=== PATIENT | female | born 1970 | race Caucasian/White ===

== ENCOUNTER → 2022-04-18 | Outpatient (CLI) | payer OTHER ==
--- NOTE | 2022-04-19 04:32 | MR ---
EXAMINATION TYPE: MR lumbar spine wo con DATE OF EXAM: 04/18/2022 COMPARISON: None HISTORY: Low back pain that radiates down both legs Multiplanar multi echo imaging of the lumbar spine with no contrast. The lumbar vertebra have fairly normal alignment. There is mild narrowing of the disc spaces. Disc sp sumanth narrowing more noticeable at L1-2. There is posterior mild disc herniation at L1-2 and L3-4. Ther e is a minimal L5-S1 subluxation. No definite spondylolysis. No evidence of focal bone destruction. T here is no lumbar paraspinal mass. No evidence of any significant lumbar spinal stenosis. The lumbar neural foramina appear fairly well maintained. IMPRESSION: Spondylotic changes. Mild posterior disc herniation at L1-2 and L3-4 without spinal stenosis. No frac ture.
== END | disposition home or self-care (01) ==
LOC: RADMRIMAIN 14:21
PROVIDERS: ATTEND Family Medicine
DX: M47.816 Spondylosis without myelopathy or radiculopathy, lumbar region (principal); M51.26 Other intervertebral disc displacement, lumbar region
CPT/HCPCS: 72148

== ENCOUNTER → 2022-07-24 | Outpatient (CLI) | payer OTHER ==
[2022-07-24 14:19] LABS: INR 1.1 (<1.2); Prothrombin Time 11.4 sec (9.0-12.0)
[2022-07-24 14:22] LABS: Appearance,Urine Cloudy (Clear); Bacteria,Urine Rare /hpf; Bilirubin,Urine Negative (Negative); Blood,Urine Moderate (Negative); Color,Urine Light Yellow; Glucose,Urine (UA) Negative (Negative); Ketones,Urine Negative (Negative); Leukocyte Esterase,Urine Moderate (Negative); Mucus,Urine Rare /hpf; Nitrite,Urine Negative (Negative); Protein,Urine Negative (Negative); RBC,Urine 1 /hpf (0-5); Specific Gravity,Urine 1.016 (1.001-1.035); Squamous Epithelial Cell,Urine 4 /hpf (0-4); Urobilinogen,Urine <2.0 mg/dL (<2.0); WBC,Urine 23 /hpf (0-5)
[2022-07-24 18:55] LABS: Basophils # (A) 0.08 X 10*3/uL (0.00-0.10); Basophils % (A) 0.8 %; Eosinophils # (A) 0.23 X 10*3/uL (0.04-0.35); Eosinophils % (A) 2.4 %; HCT 45.9 % (37.2-46.3); HGB 13.6 g/dL (12.0-15.0); Immature Grans, Automated 0.3 %; Lymphocytes # (A) 2.55 X 10*3/uL (0.90-5.00); MCH 23.5 pg (27.0-32.0); MCHC 29.6 g/dL (32.0-37.0); MCV 79.3 fL (80.0-97.0); Mean Platelet Volume 10.3 fL (9.5-12.2); Monocytes # (A) 0.57 X 10*3/uL (0.20-1.00); NRBC Per 100 WBC 0 /100 WBCS (0.0-0.0); Neutrophils # (A) 5.97 X 10*3/uL (1.80-7.70); Neutrophils % (A) 63.5 %; Platelet Count 332 X 10*3/uL (140-440); RBC 5.79 X 10*6/uL (4.10-5.20); RDW 16.8 % (11.5-14.5); WBC 9.43 X 10*3/uL (4.50-10.00)
[2022-07-24 21:11] LABS: African American GFR (CKD) 103.7 (60.0-200.0); Albumin 4.7 g/dL (3.8-4.9); Albumin/Globulin Ratio 1.69 (1.60-3.17); Anion Gap 16.1 mmol/L (10.00-18.00); BUN/Creat Ratio 14.38 Ratio (12.00-20.00); Calcium 10.1 mg/dL (8.7-10.3); Carbon Dioxide 22.3 mmol/L (20.0-27.5); Globulin 2.8 g/dL (1.6-3.3); Non-African American GFR(CKD) 89.5 (60.0-200.0); Potassium 4.2 mmol/L (3.5-5.5); Total Bilirubin 0.2 mg/dL (0.30-1.20); Total Protein 7.5 g/dL (6.2-8.2)
== END | disposition home or self-care (01) ==
LOC: LABPAT 12:25
PROVIDERS: ATTEND Orthopaedic Surgery
DX: Z01.818 Encounter for other preprocedural examination (principal); Z01.812 Encounter for preprocedural laboratory examination; M16.12 Unilateral primary osteoarthritis, left hip
CPT/HCPCS: 80053; 81001; 85025; 85610; 85730; 87070; 93005

== ENCOUNTER 2022-07-30 05:27 | Day surgery (SDC) | payer OTHER ==
[~2022-07-30 05:27] MED LIST: ACETAMINOPHEN TAB 500 MG TAB PO PRN; GABAPENTIN 300 MG CAP PO PRN; MELOXICAM 7.5 MG TAB PO PRN; TRANEXAMIC ACID IN NACL,ISO-OS 1,000 MG in SALINE 1 100ML.BAG IVPB PRN
[2022-07-30] MEDS ORDERED: LIDOCAINE 1% (10MG/ML) FOR IV START INTRADERMA PRN (05:57)
[2022-07-30] MEDS ORDERED: HYDROmorphone 0.5 MG/0.5 ML SYRINGE IVP PRN ×3 (05:57→08:52)
[2022-07-30] MEDS ORDERED: MIDAZOLAM 2 MG/2 ML VIAL IV PRN (05:57)
[2022-07-30] MEDS ORDERED: DEXAMETHASONE SOD PHOSPHATE 4 MG/ML 1 ML VIAL IV ONE (05:57)
[2022-07-30] MEDS ORDERED: ONDANSETRON 4 MG/2 ML VIAL IVP ONE (05:57)
[2022-07-30] MEDS: LACTATED RINGERS 1,000 ML IV SCH (06:30)
[2022-07-30] MEDS ORDERED: SCOPOLAMINE 1 MG/72 HR PATCH TRANSDERM ONE (06:30)
[2022-07-30 06:36] LABS: Glucose,Whole Blood 106 mg/dL (70-110)
[2022-07-30] MEDS ORDERED: ceFAZolin 1,000 MG in SODIUM CHLORIDE 0.9% 1,000 ML IRRIGATION ONE (07:00)
[2022-07-30] MEDS ORDERED: ROPIVACAINE 5 MG/ML 30 ML VIAL MISCELLANE ONE ×2 (07:29→08:14)
[2022-07-30] MEDS ORDERED: LACTATED RINGERS 1,000 ML IV ONE (08:20)
--- NOTE | 2022-07-30 08:34 | P.OP ---
Date of Procedure: 07/30/22 Preoperative Diagnosis: severe osteoarthritis left hip Postoperative Diagnosis: 1. Severe osteoarthritis left hip 2. Obesity Procedure(s) Performed: 1. Left total hip arthroplasty with a direct anterior approach 2. Application of Prevena wound vac sysytem Implants: [employer] Polarstem standard size 3 [employer] R3, 3 hole hemispherical acetabular shell, 54 mm [employer] Reflection 6.5 mm cancellus screw, 20 mm 2 [employer] R3, XLPE 20 acetabular liner [employer] Oxinium femoral head 36 m, +4 All components were press-fit. The articulation is Oxinium on polyethylene. Anesthesia: spinal Surgeon: Darius Pierce Special Skills Officer #1: Sarah Garza Estimated Blood Loss (ml): 400 Pathology: other (femoral head) Condition: stable Disposition: PACU Indications for Procedure: After failure of conservative treatment we discussed the surgical and nonsurgical treatment options at length. Patient wishes to proceed with a total hip arthroplasty with a direct anterior approach. Complications specific to this procedure were discussed at length, including but not limited to infection, leg length discrepancy, dislocation, nerve injury, and fracture. Covid-19 was also discussed at length with the patient, and they are aware of the current policies and procedures. The patient was given the option of delaying surgery, but they elect to proceed knowing these risks. Patient is aware of all these complications and informed consent was obtained Operative Findings: the operative findings are consistent with severe osteoarthritis of the left hip Description of Procedure: Patient was seen and evaluated in the preoperative area and the consent was reviewed. The operative site was marked with a skin marker. The patient was then brought to the operating room and given preoperative antibiotics intravenously. 1 g of Tranexamic acid was also given intravenously. A spinal anesthetic was administered by the anesthesia department. The patient was then placed on the [place] table with the bony prominences well-padded. The hip area was then prepped with a ChloraPrep solution and draped in the usual sterile fashion. A universal timeout was then performed, which confirmed the patient's name, surgical site, ALLERGIES, and procedure being performed on the consent. Next the incision site was located at 1 cm distal and 2 cm lateral to the anterior superior iliac spine. The skin and subcutaneous tissues were sharply incised. Incision was carefully dissected down to the fascia overlying the tensor fascia cyntiha muscle. This fascia was then incised in line with the incision. Care was taken to stay laterally in order to avoid injuring the lateral femoral cutaneous nerve. Next, using blunt finger dissection, the tensor fascia cynthia muscle was dissected off its investing fascia. The muscle was then carefully retracted laterally with a cobra retractor over the lateral neck of the femur. Next, the circumflex vessels were identified and cauterized using the AquaMantis device. The anterior hip capsule was then exposed. The capsule was then opened and an inverted T fashion. Cobra retractors were then placed intracapsularly. The retractors were maintained intracapsular throughout the procedure. The proximal femur was then visualized. Fluoroscopic x-rays were then taken in order to evaluate the preoperative leg lengths. A small amount of traction was placed on the leg. The femoral neck was then osteotomized at the appropriate level above the lesser trochanter. A small wedge of bone was then removed from the remaining femoral head. Next, using a corkscrew the femoral head was removed from the acetabulum. On gross visual inspection, the femoral head had complete loss of articular cartilage and multiple periarticular osteophytes. The femoral head was then measured. Attention was then turned to the acetabulum. The acetabulum was exposed and any remaining labrum was excised. Sequential reaming of the acetabulum was performed using fluoroscopic guidance until there was a good bed of bleeding cancellus bone. When the appropriate size was reached, a trial was then placed. The position and fit of the trial was checked with fluoroscopy. The trial was then removed. Then, using fluoroscopic guidance, the final implant was impacted at 20 of anteversion and 40 of abduction, and fully seated in the acetabulum. 2 screws were then placed in the acetabulum. Again fluoroscopy was used to check position of the screws. Next, the liner was then impacted, with a 20 elevated liner located in the anterior superior quadrant. Component locking was confirmed. Attention was then directed to the femur. With the aid of the [place] table, the femur was externally rotated to approximately 130, extended, and adducted under the opposite leg. A side hook was then placed under the proximal femur, and the side hook elevator was used to elevate the proximal femur while releasing the capsule. Retractors were then placed. A capsular release was performed, as well as a release of the conjoined tendon, which afforded excellent visualization of the proximal femur. Next, a box osteotome was used to lateralize the proximal femur. A hand tool filer was then used to locate the femoral canal. Sequential broaching was then performed with appropriate size which afforded excellent fixation in the proximal femur. A trial was then placed with appropriate head and neck, and the hip was gently reduced with the aid of the [place] table. Fluoroscopy was then used to check position of the components, as well as to evaluate the leg lengths and offset. The leg lengths and offset were measured as closely as possible to ensure stability of the hip. The hip was then gently dislocated and the trials were then removed. Final implants were then impacted and the hip was again reduced. Final fluoroscopic x-rays confirmed that the components were in anatomic position. The leg lengths and offset were measured and were found to coincide with the trial measurements. The hip was also taken through range of motion, and found to be stable. The hip was then copiously irrigated with antibiotic solution with pulsatile lavage. The hip was then irrigated with Irrisept solution. The soft tissues were then injected with a ropivacaine solution. A second dose of 1 g of Tranexamic acid was also given intravenously. The fascia was then closed with 2-0 strata fix suture. The subcutaneous tissue was closed with 3-0 Vicryl. The subcuticular tissue was closed with 3-0 strata fix suture. A Prevena wound vac dressing was applied secondary to the patients large panus covering the incision site. The patient was then transferred to the recovery room in stable condition. The assurance assistant ANNALISA Madrigal was required due to the complexity of surgery, and the need for skilled surgical specialist for positioning, draping, exposure, retraction, and closure of the wound.
[2022-07-30] MEDS ORDERED: NALOXONE 0.4 MG/ML 1 ML VIAL IV PRN (08:52)
[2022-07-30] MEDS ORDERED: MAGNESIUM HYDROXIDE 2,400 MG/10 ML CUP PO PRN (08:52)
[2022-07-30] MEDS ORDERED: ONDANSETRON 4 MG/2 ML VIAL IVP PRN (08:52)
[2022-07-30] MEDS ORDERED: HYDROmorphone 1 MG/ML 1 ML SYRINGE IVP PRN (08:52)
[2022-07-30] MEDS ORDERED: HYDROcodone/APAP 7.5-325MG 1 EACH TAB PO PRN (08:54)
--- NOTE | 2022-07-30 08:57 | XR ---
EXAMINATION TYPE: XR Hip Limited LT DATE OF EXAM: 07/30/2022 COMPARISON: NONE HISTORY: Postop TECHNIQUE: One view submitted. FINDINGS: There is postsurgical change in near anatomic alignment. There is soft tissue edema and emphysema. IMPRESSION: 1. Postoperative change. Appears in near-anatomic alignment.
--- NOTE | 2022-07-30 09:23 | FL ---
Intraoperative/procedural fluoroscopic services were provided. Total fluoroscopy time is 43 seconds w ith a total of 3 submitted images to PACS. Please see the operative/procedural note for further detai ls.
[2022-07-30] MEDS: SODIUM CHLORIDE 0.9% 1,000 ML IV SCH (10:21)
[2022-07-30] MEDS ORDERED: ALPRAZolam 0.25 MG TAB PO PRN (11:21)
[2022-07-30] MEDS: HYDROcodone/APAP 7.5-325MG 1 EACH TAB PO PRN ×3 (11:25→23:46)
[2022-07-30] MEDS: NICOTINE 21MG/24HR PATCH TRANSDERM SCH (14:58)
[2022-07-30] MEDS: ASPIRIN 325 MG TAB PO SCH (20:27)
[2022-07-30] MEDS ORDERED: ESCITALOPRAM 10 MG TAB PO SCH (21:00)
[2022-07-30] MEDS ORDERED: SENNOSIDES-DOCUSATE SODIUM 1 EACH TAB PO SCH (21:00)
--- NOTE | 2022-07-30 21:43 | P.CONS ---
History of Present Illness - Reason for Consult Consult date: 07/30/22 Medical management Requesting physician: Darius Pierce - Chief Complaint Left hip surgery - History of Present Illness This is a pleasant 52-year-old patient who follows with Dr. Danilo Flores. Chronic stable medical conditions include GERD, anxiety, depression, nicotine dependence, osteoarthritis. Patient has undergone left total hip arthroplasty. Postprocedure pain is controlled. No nausea vomiting. Did tolerate some diet. No chest pain or shortness of breath. Review of systems: GEN.: Tired EYES: None HEENT: None NECK: None RESPIRATORY: None CARDIOVASCULAR: None GASTROINTESTINAL: None GENITOURINARY: None MUSCULOSKELETAL: Joint pains LYMPHATICS: None HEMATOLOGICAL: None PSYCHIATRY: None NEUROLOGICAL: None Past medical history to include: GERD, anxiety, depression, nicotine dependence Social history: Lives with her . Smokes about half a pack a day for last 34 years. No alcohol. Family history: Reviewed, noncontributory to presentation Physical examination: VITAL SIGNS: 97.7, 92, 17, 1 25 x 65, 97% room air GENERAL: BMI 40.8, declining bed, awake, comfortable. EYES: Pupils equal. Conjunctiva normal. HEENT: External appearance of nose and ears normal, oral cavity grossly normal. NECK: JVD not raised; masses not palpable. HEART: First and second heart sounds are normal; no edema. LUNGS: Respiratory rate normal; clear to auscultation. ABDOMEN: Soft, nontender, liver spleen not palpable, no masses palpable. PSYCH: Alert and oriented x3; mood and affect normal. MUSCULOSKELETAL:No Clubbing/cyanosis;muscles-grossly intact, evidence of OA, dressing on the left hip NEUROLOGICAL: Cranial nerves grossly intact; no facial asymmetry, power and sensation grossly intact. LYMPHATICS: No lymph nodes palpable in the axilla and neck INVESTIGATIONS, reviewed in the clinical context: Lab work from 07/24/2022 WBC 9.4 hemoglobin 13.6 platelets 332 potassium 4.2 creatinine 0.8 AST 29 ALT 12 Assessment and plan: -Left total hip arthroplasty. Pain control. Aspirin for DVT prophylaxis. Ancef for infection prophylaxis -Morbid obesity BMI 40.8 Consult dietitian for weight loss measures -Depression and anxiety Lexapro -Chronic nicotine dependence, suggested smoker Nicotine patch Care was discussed with the patient. Questions answered. Nicotine patch. Aspirin for DVT prophylaxis. Patient to follow-up with his PCP upon discharge Thank you Dr. Pierce Past Medical History Past Medical History: Osteoarthritis (OA) Additional Past Medical History / Comment(s): US on 07-23-22 @ [facility] of left leg no blood clots after having injury-no open areas,periodic steroid use-last used Jul 2022, Ant TLH 07/30/2022 History of Any Multi-Drug Resistant Organisms: None Reported Additional Past Surgical History / Comment(s): wisdom teeth Past Anesthesia/Blood Transfusion Reactions: Motion Sickness, Postoperative Nausea & Vomiting (PONV) Past Psychological History: Anxiety, Depression Smoking Status: Current every day smoker Past Alcohol Use History: None Reported Additional Past Alcohol Use History / Comment(s): started smoking at age 18,<1ppd Past Drug Use History: None Reported - Past Family History Mother Family Medical History: No Reported History Medications and Allergies Home Medications Medication Instructions Recorded Confirmed Type ALPRAZolam [Xanax] 0.25 mg PO BID PRN 07/25/22 07/25/22 History Escitalopram Oxalate [Lexapro] 10 mg PO HS 07/25/22 07/25/22 History HYDROcodone/APAP 5-325MG [[place] 1 tab PO Q6HR PRN 07/25/22 07/25/22 History 5-325] Ibuprofen [Motrin] 800 mg PO Q8H PRN 07/25/22 07/25/22 History methylPREDNISolone Dose Pack 4 mg PO DIRECTED PRN 07/25/22 07/25/22 History [Medrol Dose Pack] Aspirin 325 mg PO BID #60 tab 07/30/22 Rx HYDROcodone/APAP 7.5-325MG [[place] 1 - 2 tab PO Q6H PRN #32 tab 07/30/22 Rx 7.5-325] Sennosides [Senokot] 2 tab PO DAILY PRN #60 tablet 07/30/22 Rx Allergies Allergy/AdvReac Type Severity Reaction Status Date / Time Penicillins Allergy Rash/Hives Verified 07/25/22 15:08 Physical Exam Vitals: Vital Signs Temp Pulse Resp BP Pulse Ox 07/30/22 20:00 97.7 F 92 17 125/65 97 07/30/22 14:00 98.2 F 105 H 18 106/70 94 L 07/30/22 11:15 98.0 F 70 18 104/66 96 07/30/22 10:47 62 16 107/56 95 07/30/22 10:32 64 16 111/61 94 L 07/30/22 10:17 69 16 109/62 95 07/30/22 10:02 64 16 109/60 95 07/30/22 09:47 67 16 116/62 94 L 07/30/22 09:32 63 16 110/58 94 L 07/30/22 09:17 68 16 105/58 96 07/30/22 09:02 68 16 106/62 96 07/30/22 08:47 97.0 F L 78 12 113/63 99 07/30/22 06:46 97 F L 69 20 132/72 98 Intake and Output 07/30/22 07/30/22 07/30/22 06:59 14:59 22:59 Intake Total 100 1251 Output Total 600 Balance 100 651 Intake: IV 100 1251 Output: Urine 200 Estimated Blood Loss 400 Other: Weight 101.1 kg 101.1 kg
[2022-07-31] MEDS: SODIUM CHLORIDE 0.9% 1,000 ML IV SCH (04:26)
[2022-07-31] MEDS: LACTATED RINGERS 1,000 ML IV SCH (06:09)
[2022-07-31] MEDS: HYDROcodone/APAP 7.5-325MG 1 EACH TAB PO PRN ×2 (06:59→12:05)
[2022-07-31] MEDS: NICOTINE 21MG/24HR PATCH TRANSDERM SCH (07:35)
[2022-07-31] MEDS: ASPIRIN 325 MG TAB PO SCH (07:35)
[2022-07-31 07:40] VITALS: BP 145/75; PULSE 64; RESP 18; TEMP 97.9
--- NOTE | 2022-07-31 09:40 | P.DS ---
Providers Expected date of discharge: 07/31/22 Attending physician: Darius Pierce Consults: 07/30/22 08:52 Consult Physician Routine Consulting Provider: Vito Murray Consult Reason/Comments: medical management Do you want consulting provider notified?: Yes Primary care physician: Danilo Flores - Discharge Diagnosis(es) (1) Osteoarthritis of left hip Current Visit: Yes Status: Acute (2) S/P total left hip arthroplasty Current Visit: Yes Status: Acute Hospital Course: This is a 52-year-old female with known history of degenerative arthritis of the left hip. The patient presented for evaluation as an outpatient. After discussion and consideration patient elects to proceed with total hip arthroplasty. The patient is seen preoperatively by Dr. Pierce and medically cleared for surgery by their primary care physician. Patient is admitted to [facility] on 07/30/2022 for total hip arthroplasty. The procedure is performed without complication or sequelae. The patient is doing well postoperatively. Labs and vital signs are stable on day of discharge. On day of discharge patient's hip incision is healing well. There is minimal erythema. There is no drainage noted at this time. There is minimal soft tissue swelling to the hip and thigh. Patient has full foot and ankle motion without difficulty or pain. Calf is soft and nontender to palpation. Neurovascular status to the left lower extremity is intact. Patient is discharged home in good condition. Please see [facility] rec for accurate list of home medications. Plan - Discharge Summary Discharge Rx Participant: No New Discharge Prescriptions: New Aspirin 325 mg PO BID #60 tab Sennosides [Senokot] 2 tab PO DAILY PRN #60 tablet PRN Reason: Constipation HYDROcodone/APAP 7.5-325MG [[place] 7.5-325] 1 - 2 tab PO Q6H PRN #32 tab PRN Reason: Pain No Action Ibuprofen [Motrin] 800 mg PO Q8H PRN PRN Reason: Pain methylPREDNISolone Dose Pack [Medrol Dose Pack] 4 mg PO DIRECTED PRN PRN Reason: only takes when works HYDROcodone/APAP 5-325MG [[place] 5-325] 1 tab PO Q6HR PRN PRN Reason: Pain Escitalopram Oxalate [Lexapro] 10 mg PO HS ALPRAZolam [Xanax] 0.25 mg PO BID PRN PRN Reason: Anxiety Discharge Medication List ALPRAZolam [Xanax] 0.25 mg PO BID PRN 07/25/22 [History] Escitalopram Oxalate [Lexapro] 10 mg PO HS 07/25/22 [History] HYDROcodone/APAP 5-325MG [[place] 5-325] 1 tab PO Q6HR PRN 07/25/22 [History] Ibuprofen [Motrin] 800 mg PO Q8H PRN 07/25/22 [History] methylPREDNISolone Dose Pack [Medrol Dose Pack] 4 mg PO DIRECTED PRN 07/25/22 [History] Aspirin 325 mg PO BID #60 tab 07/30/22 [Rx] HYDROcodone/APAP 7.5-325MG [[place] 7.5-325] 1 - 2 tab PO Q6H PRN #32 tab 07/30/22 [Rx] Sennosides [Senokot] 2 tab PO DAILY PRN #60 tablet 07/30/22 [Rx] Follow up Appointment(s)/Referral(s): Danilo Flores MD [Primary Care Provider] - 1 Week Darius Pierce DO [Doctor of Osteopathic Medicine] - 08/13/22 2:00 pm Patient Instructions/Handouts: *Surgery [facility] - Scopalamine Patch Instructions Activity/Diet/Wound Care/Special Instructions: Weightbearing as tolerated with walker. Leave wound vac intact until follow up in the office at one week. Please take aspirin 325mg twice daily for 30 days to prevent blood clots. Recommend use of compression stockings daily until follow up to help prevent swelling and blood clots. May remove at night before sleeping. Please follow-up with [facility] in 1 week for wound vac removal, and call with any questions or concerns, . Discharge Disposition: HOME WITH HOME HEALTH SERVICES
[2022-07-31 09:42] LABS: Basophils # (A) 0.04 X 10*3/uL (0.00-0.10); Basophils % (A) 0.4 %; Eosinophils # (A) 0.09 X 10*3/uL (0.04-0.35); Eosinophils % (A) 0.8 %; HCT 30.7 % (37.2-46.3); Immature Grans, Automated 0.4 %; Lymphocytes # (A) 1.86 X 10*3/uL (0.90-5.00); Lymphocytes % (A) 17.5 %; MCH 23.1 pg (27.0-32.0); MCHC 29.3 g/dL (32.0-37.0); MCV 78.7 fL (80.0-97.0); Mean Platelet Volume 10.2 fL (9.5-12.2); Monocytes # (A) 1.05 X 10*3/uL (0.20-1.00); Monocytes % (A) 9.9 %; NRBC Per 100 WBC 0 /100 WBCS (0.0-0.0); Neutrophils # (A) 7.55 X 10*3/uL (1.80-7.70); Platelet Count 228 X 10*3/uL (140-440); RDW 17.1 % (11.5-14.5); WBC 10.63 X 10*3/uL (4.50-10.00)
[2022-07-31 13:24] VITALS: BMI 40.7
--- NOTE | 2022-07-31 16:47 | P.PN ---
Progress Note - Text Progress Note Date: 07/31/22 - Chief Complaint Left hip surgery Hospital course This is a pleasant 52-year-old patient who follows with Dr. Danilo Flores. Chronic stable medical conditions include GERD, anxiety, depression, nicotine dependence, osteoarthritis. Patient has undergone left total hip arthroplasty. Postprocedure pain is controlled. No nausea vomiting. Did tolerate some diet. No chest pain or shortness of breath. 07/31/2022: Pain control. Oral intake fair. Up in a chair. Did ambulate. Questions answered. Current medications reviewed Past medical history to include: GERD, anxiety, depression, nicotine dependence Social history: Lives with her . Smokes about half a pack a day for last 34 years. No alcohol. Family history: Reviewed, noncontributory to presentation Physical examination: VITAL SIGNS: 97.9, 64, 18, 145% he 5, 99% room air GENERAL: Up in a chair, comfortable EYES: Pupils equal. Conjunctiva normal. HEENT: External appearance of nose and ears normal, oral cavity grossly normal. NECK: JVD not raised; masses not palpable. HEART: First and second heart sounds are normal; no edema. LUNGS: Respiratory rate normal; clear to auscultation. ABDOMEN: Soft, nontender, liver spleen not palpable, no masses palpable. PSYCH: Alert and oriented x3; mood and affect normal. MUSCULOSKELETAL:No Clubbing/cyanosis;muscles-grossly intact, evidence of OA, dressing on the left hip INVESTIGATIONS, reviewed in the clinical context: 07/31/2022: White count 10.6 hemoglobin 9 platelets 228 Lab work from 07/24/2022 WBC 9.4 hemoglobin 13.6 platelets 332 potassium 4.2 creatinine 0.8 AST 29 ALT 12 Assessment and plan: -Left total hip arthroplasty. Pain control. Aspirin for DVT prophylaxis. Ancef for infection prophylaxis -Acute postprocedure blood loss anemia expected from surgery Add ferrous sulfate -Morbid obesity BMI 40.8 Consult dietitian for weight loss measures -Depression and anxiety Lexapro -Chronic nicotine dependence, suggested smoker Nicotine patch Ferrous sulfate added. Patient to follow-up with PCP upon discharge. Discussed. Thank you Dr. Pierce
== END 2022-07-31 13:00 | disposition home health service (06) ==
LOC: OR 05:27 → 4SSUR 10:33 → OR 07-31 13:00
PROVIDERS: ATTEND Orthopaedic Surgery
DX: M16.12 Unilateral primary osteoarthritis, left hip (principal); E66.9 Obesity, unspecified; F41.8 Other specified anxiety disorders; F17.210 Nicotine dependence, cigarettes, uncomplicated; Z68.36 Body mass index [BMI] 36.0-36.9, adult; Z79.82 Long term (current) use of aspirin; Z79.1 Long term (current) use of non-steroidal anti-inflammatories (NSAID); Z79.899 Other long term (current) drug therapy; Z88.0 Allergy status to penicillin
CPT/HCPCS: 97161; 86900; 86901; 86850; 73501; 27130; C1776; S4990; J1100; J0690 ×2; J2405; J1170 ×2; J2795; 85025; 88305; 88311

== ENCOUNTER 2022-11-27 05:32 | Observation (INO) | payer OTHER ==
[2022-11-20 15:50] VITALS: BMI 40.2
[~2022-11-27 05:32] MED LIST changes: +ONDANSETRON 4 MG/2 ML VIAL IVP ONE
[2022-11-27] MEDS: LACTATED RINGERS 1,000 ML IV SCH ×2 (05:50→21:36)
[2022-11-27] MEDS ORDERED: SCOPOLAMINE 1 MG/72 HR PATCH TRANSDERM ONE (06:40)
[2022-11-27] MEDS ORDERED: DEXAMETHASONE SOD PHOSPHATE 4 MG/ML 1 ML VIAL IVP ONE (06:40)
[2022-11-27] MEDS ORDERED: PHENYLEPHRINE-0.9% NACL SYG 1,000 MCG/10 ML SYRINGE ONE (06:50)
[2022-11-27] MEDS ORDERED: MIDAZOLAM 2 MG/2 ML VIAL ONE (06:50)
[2022-11-27] MEDS ORDERED: TRANEXAMIC ACID IN NACL,ISO-OS 1,000 MG/100 ML BAG ONE (06:50)
[2022-11-27] MEDS ORDERED: KETAMINE 10 MG/ML 20 ML VIAL ONE (06:50)
[2022-11-27] MEDS ORDERED: PROPOFOL 10 MG/ML 20 ML VIAL IV ONE (06:50)
[2022-11-27] MEDS ORDERED: fentaNYL (PF) 50 MCG/ML 2 ML AMP ONE (06:50)
[2022-11-27] MEDS ORDERED: ceFAZolin 1,000 MG in SODIUM CHLORIDE 0.9% 1,000 ML IRRIGATION ONE (06:54)
[2022-11-27] MEDS ORDERED: ROPIVACAINE 5 MG/ML 30 ML VIAL MISCELLANE ONE ×2 (07:25→08:03)
--- NOTE | 2022-11-27 08:17 | P.OP ---
Date of Procedure: 11/27/22 Preoperative Diagnosis: Severe osteoarthritis right hip Postoperative Diagnosis: Severe osteoarthritis right hip Procedure(s) Performed: Right total hip arthroplasty with a direct anterior approach Implants: [employer] Polarstem standard size 4 [employer] R3, 3 hole hemispherical acetabular shell, 50 mm [employer] Reflection 6.5 mm cancellus screw, 20 mm, 25 mm [employer] R3, XLPE 20 acetabular liner [employer]hew Oxinium femoral head 36 m, +0 All components were press-fit. The articulation is Oxinium on polyethylene. Anesthesia: spinal Surgeon: Darius Pierce Crime Lab Analyst #1: Sarah Garza Estimated Blood Loss (ml): 700 Pathology: other (Femoral head) Condition: stable Disposition: PACU Indications for Procedure: After failure of conservative treatment we discussed the surgical and nonsu rgical treatment options at length. Patient wishes to proceed with a total hip arthroplasty with a direct anterior approach. Complications specific to this procedure were discussed at length, including but not limited to infection, leg length discrepancy, dislocation, nerve injury, and fracture. Covid-19 was also discussed at length with the patient, and they are aware of the current policies and procedures. The patient was given the option of delaying surgery, but they elect to proceed knowing these risks. Patient is aware of all these complications and informed consent was obtained Operative Findings: The operative findings are consistent with severe osteoarthritis of the right hip Description of Procedure: The patient was seen and evaluated in the preoperative area and the consent was reviewed. The operative site was marked with a skin marker. The patient verified the procedure and operative site. A REA block was placed by anesthesia in the preoperative area. The patient was then brought to the operating room and given preoperative antibiotics intravenously. 1 g of Tranexamic acid was also given intravenously. A spinal anesthetic was administered by the anesthesia department. The patient was then placed on the [place] table with the bony prominences well-padded. The hip area was then prepped with a ChloraPrep solution and draped in the usual sterile fashion. A universal timeout was then performed, which confirmed the patient's name, surgical site, ALLERGIES, and procedure being performed on the consent. Next the incision site was located at 1 cm distal and 4 cm lateral to the anterior superior iliac spine. The skin and subcutaneous tissues were sharply incised. Incision was carefully dissected down to the fascia overlying the tensor fascia cynthia muscle. This fascia was then incised in line with the muscle fibers. Care was taken to stay laterally in order to avoid injuring the lateral femoral cutaneous nerve. Next, using blunt finger dissection, the tensor fascia cynthia muscle was dissected off its investing fascia. The muscle was then carefully retracted laterally with a cobra retractor over the lateral neck of the femur. Next, the circumflex vessels were identified and cauterized using the Aquamantis device. The anterior hip capsule was then exposed. The capsule was then opened and an inverted T fashion. The retractors were then placed intracapsularly. The retractors were maintained intracapsular throughout the procedure. The proximal femur was then visualized. Fluoroscopic x-rays were then taken in order to evaluate the preoperative leg lengths. A small amount of traction was placed on the leg. The femoral neck was then osteotomized at the appropriate level above the lesser trochanter. A small wedge of bone was then removed from the remaining femoral head. Next, using a corkscrew the femoral head was removed from the acetabulum. On gross visual inspection, the femoral head had complete loss of articular cartilage and multiple periarticular osteophytes. The femoral head was then measured. Attention was then turned to the acetabulum. The acetabulum was exposed and any remaining labrum was excised. Sequential reaming of the acetabulum was performed using fluoroscopic guidance until there was a good bed of bleeding cancellus bone. When the appropriate size was reached, a trial was then placed. The position and fit of the trial was checked with fluoroscopy. The trial was then removed. Then, using fluoroscopic guidance, the final implant was impacted at 20 of anteversion and 40 of abduction, and fully seated in the acetabulum. 2 screws were then placed in the acetabulum. Again fluoroscopy was used to check position of the screws. Next, the liner was then impacted, with a 20 elevated liner located in the anterior superior quadrant. Component locking was confirmed. Attention was then directed to the femur. With the aid of the [place] table, the femur was externally rotated to approximately 130, extended, and adducted under the opposite leg. A side hook was then placed under the proximal femur, and the side hook elevator was used to elevate the proximal femur while releasing the capsule. Retractors were then placed. A capsular release was performed, as well as a release of the conjoined tendon, which afforded excellent v isualization of the proximal femur. Next, a box osteotome was used to lateralize the proximal femur. A embroiderer hand was then used to locate the femoral canal. Sequential broaching was then performed with appropriate size which afforded excellent fixation in the proximal femur. A trial was then placed with appropriate head and neck, and the hip was gently reduced with the aid of the [place] table. Fluoroscopy was then used to check position of the components, as well as to evaluate the leg lengths and offset. The leg lengths and offset were measured as closely as possible to ensure stability of the hip. The hip was then gently dislocated and the trials were then removed. Final implants were then impacted and the hip was again reduced. Final fluoroscopic x-rays confirmed that the components were in anatomic position. The leg lengths and offset were measured and were found to coincide with the trial measurements. The hip was also taken through range of motion, and found to be stable. The hip was then copiously irrigated with antibiotic solution with pulsatile lavage. The hip was then irrigated with Irrisept solution. The soft tissues were then injected with a ropivacaine solution. A second dose of 1 g of Tranexamic acid was also given intravenously. The fascia was then closed with 2-0 strata fix suture. The subcutaneous tissue was closed with 3-0 Vicryl. The subcuticular tissue was closed with 3-0 strata fix suture. The skin was then closed with Exofin skin glue. After the glue and dried, and Optifoam silver impregnated dressing was applied. The patient was t hen transferred to the recovery room in stable condition. The insurance legal assistant ANNALISA Madrigal was required due to the complexity of surgery, and the need for skilled surgical brace maker for positioning, draping, exposure, retraction, and closure of the wound.
--- NOTE | 2022-11-27 08:22 | XR ---
Intraoperative/procedural fluoroscopic services were provided for right total hip arthroplasty. Total fluoroscopy time is 28 seconds with a total of 3 submitted images to PACS. Total DAP 1.6589. Please see the operative note for further details.
[2022-11-27] MEDS ORDERED: NALOXONE 0.4 MG/ML 1 ML VIAL IV PRN (08:38)
[2022-11-27] MEDS ORDERED: ONDANSETRON 4 MG/2 ML VIAL IVP PRN (08:38)
[2022-11-27] MEDS ORDERED: MAGNESIUM HYDROXIDE 2,400 MG/10 ML CUP PO PRN (08:38)
[2022-11-27] MEDS ORDERED: HYDROmorphone 0.5 MG/0.5 ML SYRINGE IVP PRN (08:38)
[2022-11-27] MEDS ORDERED: HYDROcodone/APAP 7.5-325MG 1 EACH TAB PO PRN (08:40)
[2022-11-27] MEDS: HYDROmorphone 0.5 MG/0.5 ML SYRINGE IVP PRN ×2 (09:43→10:03)
[2022-11-27] MEDS ORDERED: LACTATED RINGERS 1,000 ML IV ONE ×2 (09:45)
--- NOTE | 2022-11-27 10:28 | XR ---
EXAMINATION TYPE: XR Hip Limited RT DATE OF EXAM: 11/27/2022 10:23 AM INDICATION: Patient age:Female; 52 years old; Reason for study: Status post hip surgery, assess surgical alignment; PHH. COMPARISON: Fluoroscopic images of the right hip from the same date. TECHNIQUE: The right hip was examined in frontal view. FINDINGS: Postsurgical changes from right total hip arthroplasty. Hardware appears intact with approp riate alignment. There is associated subcutaneous gas and edema. No acute fracture or dislocation. IMPRESSION: Postsurgical changes from right total hip arthroplasty. Hardware appears intact with appropriate alig nment.
[2022-11-27] MEDS ORDERED: ALPRAZolam 0.25 MG TAB PO PRN (11:18)
[2022-11-27] MEDS: HYDROmorphone 1 MG/ML 1 ML SYRINGE IVP PRN ×3 (12:22→23:30)
[2022-11-27] MEDS: SODIUM CHLORIDE 0.9% 1,000 ML IV SCH ×2 (13:38→23:26)
--- NOTE | 2022-11-27 14:03 | P.CONS ---
History of Present Illness - Reason for Consult Consult date: 11/27/22 Medical management Requesting physician: Darius Pierce - Chief Complaint Right hip surgery - History of Present Illness This is a pleasant 52-year-old patient who follows with Dr. Danilo Flores. Chronic stable medical conditions include osteoarthritis, anxiety, depression, insomnia, obesity. Patient is undergoing right total hip arthroplasty. Most procedure pain is con trolled. No nausea vomiting. Eating lunch. No chest or shortness of breath. Denies any cardiac history. Resting in bed. Patient's son and daughter the bedside. Review of systems: GEN.: None EYES: None HEENT: None NECK: None RESPIRATORY: None CARDIOVASCULAR: None GASTROINTESTINAL: None GENITOURINARY: None MUSCULOSKELETAL: Joint pains] LYMPHATICS: None HEMATOLOGICAL: None PSYCHIATRY: None NEUROLOGICAL: Insomnia Past medical history to include: Osteoarthritis, anxiety, depression, obesity insomnia Social history: . Does not smoke or drink alcohol Physical examination: VITAL SIGNS: Afebrile, 77, 16, 100/66, 99% GENERAL: BMI 40.5, declining a bit of a comfortable. EYES: Pupils equal. Conjunctiva normal. HEENT: External appearance of nose and ears normal, oral cavity grossly normal. NECK: JVD not raised; masses not palpable. HEART: First and second heart sounds are normal; no edema. LUNGS: Respiratory rate normal; clear to auscultation. ABDOMEN: Soft, nontender, liver spleen not palpable, no masses palpable. PSYCH: Alert and oriented x3; mood and affect normal. MUSCULOSKELETAL:No Clubbing/cyanosis;muscles-grossly intact. OA. Dressing over the right hip NEUROLOGICAL: Cranial nerves grossly intact; no facial asymmetry, power and sensation grossly intact. LYMPHATICS: No lymph nodes palpable in the axilla and neck INVESTIGATIONS, reviewed in the clinical context: 11/25/2022: White count 6.6 hemoglobin 11.7 platelets 179 potassium 4.1 creatinine 0.6 Assessment and plan: -Right total hip arthroplasty Pain control. Aspirin for DT prophylaxis. -Morbid Obesity BMI 40.5 Weight loss measures -Primary osteoarthritis Pain medications as needed -Anxiety not otherwise specified Xanax 0.25 mg twice a day when necessary -Depression Lexapro 10 mg a day Care was discussed with the patient and family by the bedside. Questions answered. Thank you Dr. Pierce Past Medical History Past Medical History: Osteoarthritis (OA) Additional Past Medical History / Comment(s[facility] no blood clots after having injury-no open areas,periodic steroid use-last used Jul 2022, Ant TLH 07/30/2022 History of Any Multi-Drug Resistant Organisms: None Reported Past Surgical History: Joint Replacement Additional Past Surgical History / Comment(s): LT ALISSA 07/30/22, RT ALISSA 11/27/2021 Past Anesthesia/Blood Transfusion Reactions: Postoperative Nausea & Vomiting (PONV) Past Psychological History: Anxiety, Depression Smoking Status: Former smoker Past Alcohol Use History: Occasional Additional Past Alcohol Use History / Comment(s): QUIT SMOKING 07/2022 Past Drug Use History: None Reported - Past Family History Mother Family Medical History: No Reported History Medications and Allergies Home Medications Medication Instructions Recorded Confirmed Type ALPRAZolam [Xanax] 0.25 mg PO BID PRN 07/25/22 11/27/22 History Escitalopram Oxalate [Lexapro] 10 mg PO DAILY 07/25/22 11/27/22 History Aspirin 325 mg PO BID #60 tab 11/27/22 Rx HYDROcodone/APAP 7.5-325MG [[place] 1 - 2 tab PO Q6H PRN #32 tab 11/27/22 Rx 7.5-325] HYDROcodone/APAP 7.5-325MG [[place] 1 tab PO Q8H PRN 11/27/22 11/27/22 History 7.5-325] Sennosides [Senokot] 2 tab PO DAILY PRN #60 tablet 11/27/22 Rx Allergies Allergy/AdvReac Type Severity Reaction Status Date / Time Penicillins Allergy Rash/Hives Verified 11/20/22 15:37 Physical Exam Vitals: Vital Signs Temp Pulse Resp BP Pulse Ox 11/27/22 13:22 77 100/66 11/27/22 13:07 76 98/64 11/27/22 12:53 76 96/62 11/27/22 12:38 66 100/57 11/27/22 12:21 63 106/70 11/27/22 12:07 59 L 97/62 11/27/22 11:53 57 L 82/62 11/27/22 11:23 97.6 F 68 18 87/57 11/27/22 10:47 60 18 119/56 92 L 11/27/22 10:32 59 L 18 99/52 92 L 11/27/22 10:18 59 L 16 99/52 93 L 11/27/22 09:47 54 L 16 93/54 93 L 11/27/22 09:32 54 L 16 92/51 94 L 11/27/22 09:17 55 L 16 92/55 97 11/27/22 09:02 54 L 14 80/45 98 11/27/22 08:47 60 16 78/42 97 11/27/22 08:32 97 F L 89 16 96/53 100 11/27/22 06:07 97.9 F 61 18 132/65 95 Intake and Output 11/26/22 11/27/22 11/27/22 22:59 06:59 14:59 Intake Total 851 750 Output Total 700 Balance 851 50 Intake: IV 851 750 Output: Estimated Blood Loss 700 Other: Weight 100.5 kg 100.5 kg
[2022-11-27] MEDS: SENNOSIDES-DOCUSATE SODIUM 1 EACH TAB PO SCH (20:06)
[2022-11-27] MEDS: ASPIRIN 325 MG TAB PO SCH (20:06)
[2022-11-28] MEDS: HYDROmorphone 1 MG/ML 1 ML SYRINGE IVP PRN (04:23)
[2022-11-28] MEDS: HYDROcodone/APAP 7.5-325MG 1 EACH TAB PO PRN ×3 (06:08→20:27)
--- NOTE | 2022-11-28 07:38 | P.PN ---
Subjective Progress Note Date: 11/28/22 Principal diagnosis: Primary osteoarthritis right hip. S/P total right hip arthroplasty with anterior approach. This is a 52-year-old female who is postop day #1 status post total right hip arthroplasty. She is stable from an orthopedic standpoint. She's had no nausea, vomiting or diarrhea. She denies fever or chills. Vital signs are stable. Objective - Vital Signs Vital signs: Vital Signs Temp 98.6 F 11/28/22 02:00 Pulse 88 11/28/22 02:00 Resp 16 11/28/22 02:00 BP 121/74 11/28/22 02:00 Pulse Ox 96 11/28/22 02:00 FiO2 Intake & Output 11/27/22 11/28/22 11/28/22 18:59 06:59 18:59 Intake Total 750 Output Total 900 Balance -150 Weight 100.5 kg Intake: IV 750 Output: Urine 200 Estimated Blood Loss 700 Other: Voiding Method Toilet # Voids 0 2 - Exam This is a pleasant 52-year-old female in no acute distress. She is alert and oriented 3. Exam of the right hip reveals that her dressing is clean, dry and intact. She has full foot and ankle motion without difficulty or pain. Neurovascular status to the lower extremity is intact. Assessment and Plan (1) Primary localized osteoarthritis of right hip Current Visit: Yes Status: Acute Code(s): M16.11 - UNILATERAL PRIMARY OSTEOARTHRITIS, RIGHT HIP SNOMED Code(s): 397448494544281 (2) Status post total hip replacement, right Current Visit: Yes Status: Acute Code(s): Z96.641 - PRESENCE OF RIGHT ARTIFICIAL HIP JOINT SNOMED Code(s): 915131443495 Plan: The clinical findings are discussed with the patient. She is doing well but has apprehension about going home today. We will work with physical therapy today and plan discharged to home tomorrow.
[2022-11-28] MEDS: ESCITALOPRAM 10 MG TAB PO SCH (08:05)
[2022-11-28] MEDS: ASPIRIN 325 MG TAB PO SCH ×2 (08:05→20:27)
[2022-11-28] MEDS: HYDROmorphone 0.5 MG/0.5 ML SYRINGE IVP PRN ×2 (09:43→17:34)
[2022-11-28 10:35] LABS: Basophils # (A) 0.04 X 10*3/uL (0.00-0.10); Basophils % (A) 0.4 %; Eosinophils # (A) 0.03 X 10*3/uL (0.04-0.35); Eosinophils % (A) 0.3 %; HGB 8.3 g/dL (12.0-15.0); Immature Grans, Automated 0.4 %; Lymphocytes # (A) 2.11 X 10*3/uL (0.90-5.00); Lymphocytes % (A) 19.9 %; MCH 22.1 pg (27.0-32.0); MCHC 28.6 g/dL (32.0-37.0); MCV 77.1 fL (80.0-97.0); Mean Platelet Volume 10.3 fL (9.5-12.2); Monocytes % (A) 10.4 %; NRBC Per 100 WBC 0 /100 WBCS (0.0-0.0); Neutrophils # (A) 7.26 X 10*3/uL (1.80-7.70); Neutrophils % (A) 68.6 %; Platelet Count 238 X 10*3/uL (140-440); RBC 3.76 X 10*6/uL (4.10-5.20); RDW 18.9 % (11.5-14.5); WBC 10.58 X 10*3/uL (4.50-10.00)
--- NOTE | 2022-11-28 16:26 | P.PN ---
Progress Note - Text Progress Note Date: 11/28/22 - Chief Complaint Right hip surgery Hospital course This is a pleasant 52-year-old patient who follows with Dr. Danilo Flores. Chronic stable medical conditions include osteoarthritis, anxiety, depression, insomnia, obesity. Patient is undergoing right total hip arthroplasty. Most procedure pain is controlled. No nausea vomiting. Eating lunch. No chest or shortness of breath. Denies any cardiac history. Resting in bed. Patient's son and daughter the bedside. 11/28/2022: Up in a recliner. Did walk with therapy. Some pain. Did tolerate her dried. No chest pain or shortness of breath. Comfortable. Active Medications Hydrocodone Bitart/Acetaminophen (Hydrocodone/Apap 7.5-325mg 1 Each Tab) 1 each PO Q6H PRN PRN Reason: Pain Scale 1 to 5 Stop: 12/27/22 08:41 Hydrocodone Bitart/Acetaminophen (Hydrocodone/Apap 7.5-325mg 1 Each Tab) 2 each PO Q6H PRN PRN Reason: Pain Scale 6 to 10 Stop: 12/27/22 08:41 Last Admin: 11/28/22 13:03 Dose: 2 each Alprazolam (Alprazolam 0.25 Mg Tab) 0.25 mg PO BID PRN PRN Reason: Anxiety Aspirin (Aspirin 325 Mg Tab) 325 mg PO BID [facility] Stop: 12/27/22 21:01 Last Admin: 11/28/22 08:05 Dose: 325 mg Escitalopram Oxalate (Escitalopram 10 Mg Tab) 10 mg PO DAILY [facility] Last Admin: 11/28/22 08:05 Dose: 10 mg Hydromorphone HCl (Hydromorphone 0.5 Mg/0.5 Ml Syringe) 0.5 mg IVP Q3HR PRN PRN Reason: Pain Scale 4 to 6 Stop: 12/27/22 08:39 Last Admin: 11/28/22 09:43 Dose: 0.5 mg Hydromorphone HCl (Hydromorphone 1 Mg/Ml 1 Ml Syringe) 1 mg IVP Q3HR PRN PRN Reason: Pain Scale 7 to 10 Stop: 12/27/22 08:39 Last Admin: 11/28/22 04:23 Dose: 1 mg Hydromorphone HCl (Hydromorphone 0.5 Mg/0.5 Ml Syringe) 0.25 mg IVP Q3HR PRN PRN Reason: Pain Scale 1 to 3 Stop: 12/27/22 08:39 Lactated Ringer's (Lactated Ringers) 1,000 mls @ 20 mls/hr IV .Q24H [facility] Stop: 12/26/22 19:46 Last Admin: 11/27/22 21:36 Dose: Not Given Sodium Chloride (Saline 0.9%) 1,000 mls @ 70 mls/hr IV .[id number] [facility] Stop: 12/27/22 08:46 Last Admin: 11/27/22 23:26 Dose: 70 mls/hr Magnesium Hydroxide (Magnesium Hydroxide 2,400 Mg/10 Ml Cup) 2,400 mg PO DAILY PRN PRN Reason: Constipation Stop: 12/27/22 08:39 Naloxone HCl (Naloxone 0.4 Mg/Ml 1 Ml Vial) 0.2 mg IV Q2M PRN PRN Reason: Opioid Reversal Stop: 12/27/22 08:39 Ondansetron HCl (Ondansetron 4 Mg/2 Ml Vial) 4 mg IVP Q8H PRN PRN Reason: Nausea And Vomiting Stop: 12/27/22 08:39 Senna/Docusate Sodium (Sennosides-Docusate Sodium 1 Each Tab) 2 each PO HS [facility] Stop: 12/27/22 21:01 Last Admin: 11/27/22 20:06 Dose: 2 each Past medical history to include: Osteoarthritis, anxiety, depression, obesity insomnia Social history: . Does not smoke or drink alcohol Physical examination: VITAL SIGNS: 98.7, 62, 18, 106 by city 6, 95% room air GENERAL: BMI 40.5, up in a recliner, comfortable EYES: Pupils equal. Conjunctiva normal. HEENT: External appearance of nose and ears normal, oral cavity grossly normal. NECK: JVD not raised; masses not palpable. HEART: First and second heart sounds are normal; no edema. LUNGS: Respiratory rate normal; clear to auscultation. ABDOMEN: Soft, nontender, liver spleen not palpable, no masses palpable. PSYCH: Alert and oriented x3; mood and affect normal. MUSCULOSKELETAL:No Clubbing/cyanosis;muscles-grossly intact. OA. Dressing over the right hip INVESTIGATIONS, reviewed in the clinical context: November 28: White count 10.5 hemoglobin 8.3 platelets 238 11/25/2022: White count 6.6 hemoglobin 11.7 platelets 179 potassium 4.1 creatinine 0.6 Assessment and plan: -Right total hip arthroplasty Pain control. Aspirin for DT prophylaxis. -Acute postprocedure blood loss anemia expected from surgery IV Ferrlecit 2 -Morbid Obesity BMI 40.5 Weight loss measures -Primary osteoarthritis Pain medications as needed -Anxiety not otherwise specified Xanax 0.25 mg twice a day when necessary -Depression Lexapro 10 mg a day Discussed. IV Ferrlecit. Thank you Dr. Pierce
[2022-11-28] MEDS: SODIUM FERRIC GLUCONAT-SUCROSE 125 MG in SODIUM CHLORIDE 0.9% 100 ML IVPB SCH (17:05)
[2022-11-28] MEDS: SODIUM CHLORIDE 0.9% 1,000 ML IV SCH (17:12)
[2022-11-28] MEDS: LACTATED RINGERS 1,000 ML IV SCH (20:27)
[2022-11-28] MEDS: SENNOSIDES-DOCUSATE SODIUM 1 EACH TAB PO SCH (20:27)
[2022-11-29] MEDS: HYDROcodone/APAP 7.5-325MG 1 EACH TAB PO PRN ×3 (02:00→13:02)
[2022-11-29] MEDS: SODIUM CHLORIDE 0.9% 1,000 ML IV SCH ×2 (03:25→07:36)
[2022-11-29] MEDS: LACTATED RINGERS 1,000 ML IV SCH (07:36)
[2022-11-29] MEDS: ASPIRIN 325 MG TAB PO SCH (07:39)
[2022-11-29] MEDS: ESCITALOPRAM 10 MG TAB PO SCH (07:40)
[2022-11-29] MEDS: SODIUM FERRIC GLUCONAT-SUCROSE 125 MG in SODIUM CHLORIDE 0.9% 100 ML IVPB SCH (10:54)
--- NOTE | 2022-11-29 13:20 | P.DS ---
Providers Date of admission: 11/28/22 12:37 Expected date of discharge: 11/29/22 Attending physician: Darius Pierce Consults: 11/27/22 08:38 Consult Physician Routine Consulting Provider: Vito Murray Consult Reason/Comments: medical management Do you want consulting provider notified?: Yes Primary care physician: Danilo Flores - Discharge Diagnosis(es) (1) Primary localized osteoarthritis of right hip Current Visit: Yes Status: Acute (2) Status post total hip replacement, right Current Visit: Yes Status: Acute Hospital Course: This is a 52-year-old female with known history of degenerative arthritis of the right hip. The patient presented for evaluation as an outpatient. After discussion and consideration patient elects to proceed with total hip arthroplasty. The patient is seen preoperatively by Dr. Pierce and medically cleared for surgery by their primary care physician. Patient is admitted to [facility] on 11/27/2022 for total hip arthroplasty. The procedure is performed without complication or sequelae. The patient is doing well postoperatively. Labs and vital signs are stable on day of discharge. On day of discharge patient's hip incision is healing well. There is minimal erythema. There is no drainage noted at this time. There is minimal soft tissue swelling to the hip and thigh. Patient has full foot and ankle motion without difficulty or pain. Calf is soft and nontender to palpation. Neurovascular status to the right lower extremity is intact. Patient is discharged home in good condition. Please see [facility] rec for accurate list of home medications. Plan - Discharge Summary Discharge Rx Participant: Yes New Discharge Prescriptions: New Aspirin 325 mg PO BID #60 tab HYDROcodone/APAP 7.5-325MG [[place] 7.5-325] 1 - 2 tab PO Q6H PRN #32 tab PRN Reason: Pain Sennosides [Senokot] 2 tab PO DAILY PRN #60 tablet PRN Reason: Constipation Continue Escitalopram Oxalate [Lexapro] 10 mg PO DAILY ALPRAZolam [Xanax] 0.25 mg PO BID PRN PRN Reason: Anxiety Discontinued HYDROcodone/APAP 7.5-325MG [[place] 7.5-325] 1 tab PO Q8H PRN PRN Reason: Pain Discharge Medication List ALPRAZolam [Xanax] 0.25 mg PO BID PRN 07/25/22 [History] Escitalopram Oxalate [Lexapro] 10 mg PO DAILY 07/25/22 [History] Aspirin 325 mg PO BID #60 tab 11/27/22 [Rx] HYDROcodone/APAP 7.5-325MG [[place] 7.5-325] 1 - 2 tab PO Q6H PRN #32 tab 11/27/22 [Rx] Sennosides [Senokot] 2 tab PO DAILY PRN #60 tablet 11/27/22 [Rx] Follow up Appointment(s)/Referral(s): Danilo Flores MD [Primary Care Provider] - [facility] [NON-STAFF] - 1-2 Days ([facility] will call you to schedule your in home physical therapy visits. ) Darius Pierce DO [Doctor of Osteopathic Medicine] - 12/07/22 10:15 am (With Sarah) Activity/Diet/Wound Care/Special Instructions: Weightbearing as tolerated with walker. Leave dressing intact. Dressing may be removed by home care nurse or by patient in 7 days. Then change dressing twice daily until follow up. May shower with initial dressing intact and after removal. If dressing become saturated, please remove. Please take aspirin 325mg twice daily for 30 days to prevent blood clots. Recommend use of compression stockings daily until follow up to help prevent swelling and blood clots. May remove at night before sleeping. Please follow-up with [facility] in 2 weeks and call with any questions or concerns, . Discharge Disposition: HOME WITH HOME HEALTH SERVICES
[2022-11-29 14:56] VITALS: BP 101/66; PULSE 74; RESP 18; TEMP 98.7
--- NOTE | 2022-11-29 18:31 | P.PN ---
Progress Note - Text Progress Note Date: 11/29/22 - Chief Complaint Right hip surgery Hospital course This is a pleasant 52-year-old patient who follows with Dr. Danilo Flores. Chronic stable medical conditions include osteoarthritis, anxiety, depression, insomnia, obesity. Patient is undergoing right total hip arthroplasty. Most procedure pain is controlled. No nausea vomiting. Eating lunch. No chest or shortness of breath. Denies any cardiac history. Resting in bed. Patient's son and daughter the bedside. 11/28/2022: Up in a recliner. Did walk with therapy. Some pain. Did tolerate her dried. No chest pain or shortness of breath. Comfortable. 11/29/2022: Doing well. Pain much better controlled. Tolerating diet. No new issues. She received IV iron. He'll be going home today. Follow-up with PCP. Past medical history to include: Osteoarthritis, anxiety, depression, obesity insomnia Social history: . Does not smoke or drink alcohol Physical examination: VITAL SIGNS: 98.7, 74, 18, 101/66, 97% room air GENERAL: , up in a recliner, comfortable EYES: Pupils equal. Conjunctiva normal. HEENT: External appearance of nose and ears normal, oral cavity grossly normal. NECK: JVD not raised; masses not palpable. HEART: First and second heart sounds are normal; no edema. LUNGS: Respiratory rate normal; clear to auscultation. ABDOMEN: Soft, nontender, liver spleen not palpable, no masses palpable. PSYCH: Alert and oriented x3; mood and affect normal. MUSCULOSKELETAL:No Clubbing/cyanosis;muscles-grossly intact. OA. Dressing over the right hip INVESTIGATIONS, reviewed in the clinical context: November 28: White count 10.5 hemoglobin 8.3 platelets 238 11/25/2022: White count 6.6 hemoglobin 11.7 platelets 179 potassium 4.1 creatinine 0.6 Assessment and plan: -Right total hip arthroplasty Pain control. Aspirin for DT prophylaxis. -Acute postprocedure blood loss anemia expected from surgery IV Ferrlecit 2 -Morbid Obesity BMI 40.5 Weight loss measures -Primary osteoarthritis Pain medications as needed -Anxiety not otherwise specified Xanax 0.25 mg twice a day when necessary -Depression Lexapro 10 mg a day Stable. Follow-up with PCP from discharge Thank you Dr. Pierce
== END 2022-11-29 15:10 | disposition home health service (06) ==
LOC: OR 05:32 → 4SSUR 08:32 → OR 11-28 07:55 → 4SSUR 11-28 12:37
PROVIDERS: ADMIT Orthopaedic Surgery; ATTEND Orthopaedic Surgery
DX: M16.11 Unilateral primary osteoarthritis, right hip (principal); Z96.642 Presence of left artificial hip joint; Z82.49 Family history of ischemic heart disease and other diseases of the circulatory system; Z83.3 Family history of diabetes mellitus; Z87.891 Personal history of nicotine dependence; E66.9 Obesity, unspecified; Z68.41 Body mass index [BMI] 40.0-44.9, adult; F41.9 Anxiety disorder, unspecified; G47.00 Insomnia, unspecified; F32.A Depression, unspecified; Z79.891 Long term (current) use of opiate analgesic; Z79.1 Long term (current) use of non-steroidal anti-inflammatories (NSAID); Z79.899 Other long term (current) drug therapy; Z88.0 Allergy status to penicillin
CPT/HCPCS: 97116 ×2; 97161; 97530; 97166; 81025; 86900; 86901; 85025; 86850; 88300; 73501; 27130; G0378 ×2; C1776; J2250; J1100; J0690 ×2; J2405; J3010; J2916 ×2; J1170 ×4; J2795; J2370; J2704